=== PATIENT | female | born 1935 | race Caucasian/White ===

== ENCOUNTER → 2016-12-19 | Outpatient (CLI) | payer MEDICARE, MEDICAID ==
[~2016-12-19] VITALS: Ht 157.5 cm; Wt 79.0 kg
[~2016-12-19] MED LIST: ALBU8.5H IH; AMLO10TA55 PO; ASPI-1093 PO; CALC-1015 PO; CHOL10002 PO; HYDR25TA PO; INSU10VI3 SQ; IPRAHFA IH; METF850T2 PO; OLOP2.5D OP; RALO60 PO; RAMI10CA23 PO; ROSU10 PO; TRI115O TP
[2016-12-19 11:05] VITALS: BP 155/73
== END | disposition home or self-care (01) ==
LOC: SRCNTR 10:58
PROVIDERS: ATTEND Internal Medicine Cardiovascular Disease
DX: E11.9 Type 2 diabetes mellitus without complications (principal); I10 Essential (primary) hypertension; E78.5 Hyperlipidemia, unspecified; Z95.0 Presence of cardiac pacemaker
CPT/HCPCS: G0463

== ENCOUNTER → 2017-03-30 | Outpatient (CLI) | payer MEDICARE, MEDICAID ==
[~2017-03-30] VITALS: Ht 152.4 cm; Wt 79.0 kg
[2017-03-30 14:37] VITALS: BP 134/56
== END | disposition home or self-care (01) ==
LOC: SRCNTR 14:29
PROVIDERS: ATTEND Internal Medicine Cardiovascular Disease
DX: I10 Essential (primary) hypertension (principal); E11.9 Type 2 diabetes mellitus without complications; E78.5 Hyperlipidemia, unspecified; Z95.0 Presence of cardiac pacemaker
CPT/HCPCS: G0463

== ENCOUNTER → 2017-04-28 | Outpatient (CLI) | payer MEDICARE, MEDICAID ==
[~2017-04-28] VITALS: Ht 154.9 cm; Wt 77.0 kg
[2017-04-28 10:08] VITALS: BP 105/69
== END | disposition home or self-care (01) ==
LOC: SRCNTR 09:50
PROVIDERS: ATTEND Internal Medicine Cardiovascular Disease
DX: Z45.018 Encounter for adjustment and management of other part of cardiac pacemaker (principal)
CPT/HCPCS: G0463

== ENCOUNTER → 2017-06-02 | Outpatient (CLI) | payer MEDICARE, MEDICAID ==
[~2017-06-02] VITALS: Ht 157.5 cm; Wt 78.5 kg
[2017-06-02 11:04] VITALS: BP 144/67
== END | disposition home or self-care (01) ==
LOC: SRCNTR 10:56
PROVIDERS: ATTEND Internal Medicine Cardiovascular Disease
DX: I10 Essential (primary) hypertension (principal); E11.9 Type 2 diabetes mellitus without complications; E78.5 Hyperlipidemia, unspecified; Z95.0 Presence of cardiac pacemaker
CPT/HCPCS: G0463

== ENCOUNTER → 2017-09-05 | Outpatient (CLI) | payer MEDICARE, MEDICAID ==
[~2017-09-05] VITALS: Ht 157.5 cm; Wt 78.0 kg
[~2017-09-05] MED LIST changes: -ALBU8.5H IH; +ALBU8.5H8 IH; -ASPI-1093 PO; +ASPI-1182 PO
[2017-09-05 15:16] VITALS: BP 138/71
== END | disposition home or self-care (01) ==
LOC: SRCNTR 15:14
PROVIDERS: ATTEND Internal Medicine Cardiovascular Disease
DX: I10 Essential (primary) hypertension (principal); E11.9 Type 2 diabetes mellitus without complications; E78.5 Hyperlipidemia, unspecified; Z95.0 Presence of cardiac pacemaker
CPT/HCPCS: G0463

== ENCOUNTER → 2017-10-31 | Outpatient (CLI) | payer MEDICARE, MEDICAID ==
[~2017-10-31] VITALS: Ht 154.9 cm; Wt 78.0 kg
[2017-10-31 14:10] VITALS: BP 120/64
== END | disposition home or self-care (01) ==
LOC: SRCNTR 14:00
PROVIDERS: ATTEND Internal Medicine Cardiovascular Disease
DX: Z45.018 Encounter for adjustment and management of other part of cardiac pacemaker (principal)
CPT/HCPCS: 93288; G0463

== ENCOUNTER → 2018-05-01 | Outpatient (CLI) | payer MEDICARE, MEDICAID ==
[~2018-05-01] VITALS: Ht 157.5 cm; Wt 77.5 kg
[2018-05-01 14:51] VITALS: BP 118/56
== END | disposition home or self-care (01) ==
LOC: SRCNTR 14:45
PROVIDERS: ATTEND Internal Medicine Cardiovascular Disease
DX: Z48.812 Encounter for surgical aftercare following surgery on the circulatory system (principal); I10 Essential (primary) hypertension; E11.9 Type 2 diabetes mellitus without complications; E78.5 Hyperlipidemia, unspecified; Z95.0 Presence of cardiac pacemaker
CPT/HCPCS: G0463

== ENCOUNTER → 2018-05-29 | Outpatient (CLI) | payer MEDICARE, MEDICAID ==
[~2018-05-29] VITALS: Ht 152.4 cm; Wt 77.0 kg
[2018-05-29 14:25] VITALS: BP 109/65
== END | disposition home or self-care (01) ==
LOC: SRCNTR 13:57
PROVIDERS: ATTEND Internal Medicine Cardiovascular Disease
DX: Z45.018 Encounter for adjustment and management of other part of cardiac pacemaker (principal)
CPT/HCPCS: G0463

== ENCOUNTER → 2018-07-18 | Outpatient (CLI) | payer MEDICARE, MEDICAID ==
[~2018-07-18] VITALS: Ht 157.5 cm; Wt 77.0 kg
[~2018-07-18] MED LIST changes: +METF-961 PO; -METF850T2 PO; -RAMI10CA23 PO; +RAMI10CA69 PO
[2018-07-18 11:21] VITALS: BP 114/60
== END | disposition home or self-care (01) ==
LOC: SRCNTR 11:18
PROVIDERS: ATTEND Internal Medicine Cardiovascular Disease
DX: I10 Essential (primary) hypertension (principal); E11.9 Type 2 diabetes mellitus without complications; E78.5 Hyperlipidemia, unspecified; Z95.0 Presence of cardiac pacemaker
CPT/HCPCS: G0463

== ENCOUNTER → 2018-10-24 | Outpatient (CLI) | payer MEDICARE, MEDICAID ==
[~2018-10-24] VITALS: Ht 157.5 cm; Wt 77.5 kg
[~2018-10-24] MED LIST changes: +TIMO.5OS OU
[2018-10-24 11:12] VITALS: BP 145/66
== END | disposition home or self-care (01) ==
LOC: SRCNTR 11:12
PROVIDERS: ATTEND Internal Medicine Cardiovascular Disease
DX: I10 Essential (primary) hypertension (principal); E11.9 Type 2 diabetes mellitus without complications; E78.5 Hyperlipidemia, unspecified; Z95.0 Presence of cardiac pacemaker; Z88.5 Allergy status to narcotic agent
CPT/HCPCS: G0463

== ENCOUNTER → 2018-10-29 | Outpatient (CLI) | payer MEDICARE, MEDICAID ==
[~2018-10-29] VITALS: Ht 157.5 cm; Wt 80.0 kg
[2018-10-29 11:14] VITALS: BP 129/68
== END | disposition home or self-care (01) ==
LOC: SRCNTR 11:07
PROVIDERS: ATTEND Internal Medicine Cardiovascular Disease
DX: Z45.02 Encounter for adjustment and management of automatic implantable cardiac defibrillator (principal)
CPT/HCPCS: G0463

== ENCOUNTER → 2019-10-03 | Outpatient (CLI) | payer MEDICARE, MEDICAID ==
[~2019-10-03] VITALS: Ht 154.9 cm; Wt 77.0 kg
[~2019-10-03] MED LIST changes: -CHOL10002 PO; -ROSU10 PO; +ROSU10TA22 PO; -TRI115O TP
[2019-10-03 14:55] VITALS: BP 111/58
== END | disposition home or self-care (01) ==
LOC: SRCNTR 14:45
PROVIDERS: ATTEND Internal Medicine Cardiovascular Disease
DX: I10 Essential (primary) hypertension (principal); E11.9 Type 2 diabetes mellitus without complications; E78.5 Hyperlipidemia, unspecified; Z95.0 Presence of cardiac pacemaker
CPT/HCPCS: G0463

== ENCOUNTER → 2019-10-31 | Outpatient (CLI) | payer MEDICARE, MEDICAID ==
[~2019-10-31] VITALS: Ht 157.5 cm; Wt 77.0 kg
[~2019-10-31] MED LIST changes: +ASPI-1111 PO; -ASPI-1182 PO; +HYDR-1475 PO; -HYDR25TA PO
[2019-10-31 15:31] VITALS: BP 138/67
== END | disposition home or self-care (01) ==
LOC: SRCNTR 15:14
PROVIDERS: ATTEND Internal Medicine Cardiovascular Disease
DX: Z45.018 Encounter for adjustment and management of other part of cardiac pacemaker (principal)
CPT/HCPCS: 93288; G0463

== ENCOUNTER → 2020-07-14 | Outpatient (CLI) | payer MEDICARE, MEDICAID ==
[~2020-07-14] VITALS: Ht 157.5 cm; Wt 77.0 kg
[~2020-07-14] MED LIST changes: +INFLUENZA VIRUS VACCINE QVS 2020-21 (6MO+)/PF 60 MCG/0.5 ML SYRINGE IM ONE; -OLOP2.5D OP; +OLOP2.5D12 OP
[2020-07-14 14:51] VITALS: BP 137/59
== END | disposition home or self-care (01) ==
LOC: SRCNTR 14:42
PROVIDERS: ATTEND Internal Medicine Cardiovascular Disease
DX: E78.5 Hyperlipidemia, unspecified (principal); E11.9 Type 2 diabetes mellitus without complications; I10 Essential (primary) hypertension; Z95.0 Presence of cardiac pacemaker; Z23 Encounter for immunization
CPT/HCPCS: 90471; 90686; G0463

== ENCOUNTER → 2020-08-06 | Outpatient (CLI) | payer MEDICARE, MEDICAID ==
[~2020-08-06] MED LIST changes: -INFLUENZA VIRUS VACCINE QVS 2020-21 (6MO+)/PF 60 MCG/0.5 ML SYRINGE IM ONE; +PNEUMOCOCCAL VACCINE POLYVALENT 0.5 ML VIAL [PPSV23] IM ONE
[2020-08-06 15:38] VITALS: BP 141/59
== END | disposition home or self-care (01) ==
LOC: SRCNTR 15:00
PROVIDERS: ATTEND Internal Medicine Cardiovascular Disease
DX: Z45.018 Encounter for adjustment and management of other part of cardiac pacemaker (principal); Z23 Encounter for immunization
CPT/HCPCS: 90732; 93288; 96372; G0463

== ENCOUNTER → 2020-12-08 | Outpatient (CLI) | payer MEDICARE, MEDICAID ==
[~2020-12-08] VITALS: Ht 154.9 cm; Wt 78.5 kg
[~2020-12-08] MED LIST changes: +ACET-66 PO; -HYDR-1475 PO; +HYDR25TA2 PO; +LORA10TA7 PO; -PNEUMOCOCCAL VACCINE POLYVALENT 0.5 ML VIAL [PPSV23] IM ONE
[2020-12-08 14:42] VITALS: BP 122/70
== END | disposition home or self-care (01) ==
LOC: SRCNTR 14:27
PROVIDERS: ATTEND Internal Medicine Cardiovascular Disease
DX: E78.5 Hyperlipidemia, unspecified (principal); I10 Essential (primary) hypertension; E11.9 Type 2 diabetes mellitus without complications; Z95.0 Presence of cardiac pacemaker
CPT/HCPCS: G0463; Z7500

== ENCOUNTER → 2021-02-25 | Outpatient (CLI) | payer MEDICARE, MEDICAID ==
[~2021-02-25] VITALS: Ht 154.9 cm; Wt 77.0 kg
[~2021-02-25] MED LIST changes: -ASPI-1111 PO; +ASPI-1444 PO; -ROSU10TA22 PO; +ROSU10TA72 PO
[2021-02-25 14:33] VITALS: BP 144/69
== END | disposition home or self-care (01) ==
LOC: SRCNTR 13:37
PROVIDERS: ATTEND Internal Medicine Cardiovascular Disease
DX: I10 Essential (primary) hypertension (principal); E11.9 Type 2 diabetes mellitus without complications; E78.5 Hyperlipidemia, unspecified; Z95.0 Presence of cardiac pacemaker
CPT/HCPCS: G0463

== ENCOUNTER → 2021-03-09 | Outpatient (CLI) | payer MEDICARE, MEDICAID ==
[~2021-03-09] VITALS: Ht 157.5 cm; Wt 77.0 kg
[2021-03-09 14:56] VITALS: BP 115/69
== END | disposition home or self-care (01) ==
LOC: SRCNTR 13:47
PROVIDERS: ATTEND Internal Medicine Cardiovascular Disease
DX: Z45.010 Encounter for checking and testing of cardiac pacemaker pulse generator [battery] (principal)
CPT/HCPCS: 93288; G0463

== ENCOUNTER → 2021-05-25 | Outpatient (CLI) | payer MEDICARE, MEDICAID ==
[~2021-05-25] VITALS: Ht 157.5 cm; Wt 74.6 kg
[~2021-05-25] MED LIST changes: +EMPA10TA PO; +SEMA0.25 SQ
[2021-05-25 14:33] VITALS: BP 117/56
== END | disposition home or self-care (01) ==
LOC: SRCNTR 14:10
PROVIDERS: ATTEND Internal Medicine Cardiovascular Disease
DX: I10 Essential (primary) hypertension (principal); E11.9 Type 2 diabetes mellitus without complications; E78.5 Hyperlipidemia, unspecified; Z95.0 Presence of cardiac pacemaker
CPT/HCPCS: G0463

== ENCOUNTER → 2021-09-07 | Outpatient (CLI) | payer MEDICARE, MEDICAID ==
[~2021-09-07] MED LIST changes: -INSU10VI3 SQ; +METF-1185 PO; -METF-961 PO
[2021-09-07 15:21] VITALS: BP 153/81
== END | disposition home or self-care (01) ==
LOC: SRCNTR 15:11
PROVIDERS: ATTEND Internal Medicine Cardiovascular Disease
DX: E11.9 Type 2 diabetes mellitus without complications (principal); I10 Essential (primary) hypertension; E78.5 Hyperlipidemia, unspecified; Z95.0 Presence of cardiac pacemaker
CPT/HCPCS: G0463

== ENCOUNTER → 2021-11-02 | Outpatient (CLI) | payer MEDICARE, MEDICAID ==
[2021-11-02 14:54] VITALS: BP 132/62
== END | disposition home or self-care (01) ==
LOC: SRCNTR 14:08
PROVIDERS: ATTEND Internal Medicine Cardiovascular Disease
DX: Z09 Encounter for follow-up examination after completed treatment for conditions other than malignant neoplasm (principal); Z95.0 Presence of cardiac pacemaker
CPT/HCPCS: G0463; Z7500

== ENCOUNTER → 2021-11-23 | Outpatient (CLI) | payer MEDICARE, MEDICAID ==
[~2021-11-23] VITALS: Ht 157.5 cm; Wt 77.0 kg
[2021-11-23 14:35] VITALS: BP 120/53
== END | disposition home or self-care (01) ==
LOC: SRCNTR 14:05
PROVIDERS: ATTEND Internal Medicine Cardiovascular Disease
DX: E11.9 Type 2 diabetes mellitus without complications (principal); I10 Essential (primary) hypertension; E78.5 Hyperlipidemia, unspecified
CPT/HCPCS: G0463

== ENCOUNTER → 2022-05-03 | Outpatient (CLI) | payer MEDICARE, MEDICAID ==
[2022-05-03 15:48] VITALS: BP 136/67
== END | disposition home or self-care (01) ==
LOC: SRCNTR 14:00
PROVIDERS: ATTEND Internal Medicine Cardiovascular Disease
DX: Z45.010 Encounter for checking and testing of cardiac pacemaker pulse generator [battery] (principal)
CPT/HCPCS: G0463

== ENCOUNTER → 2022-05-17 | Outpatient (CLI) | payer MEDICARE, MEDICAID ==
[~2022-05-17] VITALS: Ht 157.5 cm; Wt 77.0 kg
[~2022-05-17] MED LIST changes: -EMPA10TA PO; +EMPA10TA3 PO; -TIMO.5OS OU; +TIMO5DRO21 OU
[2022-05-17 14:24] VITALS: BP 111/58
== END | disposition home or self-care (01) ==
LOC: SRCNTR 14:12
PROVIDERS: ATTEND Internal Medicine Cardiovascular Disease
DX: I10 Essential (primary) hypertension (principal); E11.9 Type 2 diabetes mellitus without complications; E78.5 Hyperlipidemia, unspecified; R41.81 Age-related cognitive decline; Z95.0 Presence of cardiac pacemaker
CPT/HCPCS: G0463; Z7500

== ENCOUNTER → 2022-10-04 | Outpatient (CLI) | payer MEDICARE, MEDICAID ==
[~2022-10-04] VITALS: Ht 160 cm; Wt 75.0 kg
[2022-10-04 14:47] VITALS: BP 123/53
== END | disposition home or self-care (01) ==
LOC: SRCNTR 14:44
PROVIDERS: ATTEND Internal Medicine Cardiovascular Disease
DX: Z09 Encounter for follow-up examination after completed treatment for conditions other than malignant neoplasm (principal); I10 Essential (primary) hypertension; E11.9 Type 2 diabetes mellitus without complications; E78.5 Hyperlipidemia, unspecified; R41.81 Age-related cognitive decline
CPT/HCPCS: G0463; Z7500

== ENCOUNTER → 2023-03-14 | Outpatient (CLI) | payer MEDICARE, MEDICAID ==
[~2023-03-14] VITALS: Ht 157.5 cm; Wt 77.0 kg
[2023-03-14 14:24] VITALS: BP 112/53
== END | disposition home or self-care (01) ==
LOC: SRCNTR 14:03
PROVIDERS: ATTEND Internal Medicine Cardiovascular Disease
DX: Z09 Encounter for follow-up examination after completed treatment for conditions other than malignant neoplasm (principal); I10 Essential (primary) hypertension; E11.9 Type 2 diabetes mellitus without complications; E78.5 Hyperlipidemia, unspecified; R41.81 Age-related cognitive decline; Z95.0 Presence of cardiac pacemaker
CPT/HCPCS: G0463; Z7500

== ENCOUNTER → 2023-04-04 | Outpatient (CLI) | payer MEDICARE, MEDICAID ==
[2023-04-04 14:58] VITALS: BP 138/70; PULSE 66; RESP 18; TEMP 98.9; O2SAT 98
== END | disposition home or self-care (01) ==
LOC: SRCNTR 14:45
PROVIDERS: ATTEND Internal Medicine Cardiovascular Disease
DX: Z95.0 Presence of cardiac pacemaker (principal); Z79.899 Other long term (current) drug therapy
CPT/HCPCS: G0463; Z7500

== ENCOUNTER → 2023-05-16 | Outpatient (CLI) | payer MEDICARE, MEDICAID ==
[~2023-05-16] VITALS: Ht 160 cm; Wt 76.0 kg
[2023-05-16 14:14] VITALS: BP 107/70; PULSE 76; RESP 16; TEMP 98.7; O2SAT 98
== END | disposition home or self-care (01) ==
LOC: SRCNTR 13:54
PROVIDERS: ATTEND Internal Medicine Cardiovascular Disease
DX: Z09 Encounter for follow-up examination after completed treatment for conditions other than malignant neoplasm (principal); I10 Essential (primary) hypertension; E11.9 Type 2 diabetes mellitus without complications; E78.5 Hyperlipidemia, unspecified; R41.81 Age-related cognitive decline; Z95.0 Presence of cardiac pacemaker
CPT/HCPCS: G0463; Z7500

== ENCOUNTER → 2023-06-02 | Outpatient (CLI) | payer MEDICARE, MEDICAID | END | disposition home or self-care (01) | LOC: RADPV 12:52 | PROVIDERS: ATTEND Internal Medicine Cardiovascular Disease | DX: I08.3 Combined rheumatic disorders of mitral, aortic and tricuspid valves (principal); I50.1 Left ventricular failure, unspecified | CPT/HCPCS: 93306 ==

== ENCOUNTER → 2023-09-26 | Outpatient (CLI) | payer MEDICARE, MEDICAID ==
[~2023-09-26] VITALS: Ht 154.9 cm; Wt 78.0 kg
[~2023-09-26] MED LIST changes: +INFLUENZA VIRUS VACCINE QVS 2023-24 (6MO+)/PF 60 MCG/0.5 ML SYRINGE IM. ONE; +PNEUMOCOCCAL VACCINE POLYVALENT 0.5 ML SYRINGE [PPSV23] IM. ONE
[2023-09-26 15:31] VITALS: BP 120/75; PULSE 70; RESP 18; TEMP 98; O2SAT 97
== END | disposition home or self-care (01) ==
LOC: SRCNTR 14:12
PROVIDERS: ATTEND Internal Medicine Cardiovascular Disease
DX: Z45.010 Encounter for checking and testing of cardiac pacemaker pulse generator [battery] (principal); Z23 Encounter for immunization
CPT/HCPCS: 90686; 90732; 90471; 90472; G0463